=== PATIENT | female | born 1960 | race Caucasian/White ===

== ENCOUNTER 2016-09-02 20:40 | Emergency (ER) | payer SELFPAY ==
[~2016-09-02] VITALS: Ht 162.6 cm; Wt 115.1 kg
[2016-09-02 20:42] VITALS: BP 169/80
== END 2016-09-02 23:36 | disposition left against medical advice (07) ==
LOC: ED 23:25
DX: R06.02 Shortness of breath (principal)
CPT/HCPCS: 93005; 99281

== ENCOUNTER 2016-09-05 04:26 | Emergency (ER) | payer MEDICAID ==
[~2016-09-05] VITALS: Ht 162.6 cm; Wt 114.1 kg
[2016-09-05] MEDS ORDERED: SODIUM CHLORIDE 0.9% 1,000 ML IV ONE (04:54)
[2016-09-05] MEDS ORDERED: KETOROLAC 30 MG/1 ML ONE (04:55)
[2016-09-05] MEDS ORDERED: HYDROmorphone 1 MG/ML, 1ML ONE ×2 (04:55→06:21)
[2016-09-05] MEDS ORDERED: ONDANSETRON 2MG/ML, 2ML ONE (04:55)
[2016-09-05] MEDS ORDERED: KETOROLAC 30 MG/1 ML IVPush ONE (05:00)
[2016-09-05] MEDS ORDERED: ONDANSETRON 2MG/ML, 2ML IVPush ONE (05:00)
[2016-09-05] MEDS ORDERED: SODIUM CHLORIDE 0.9% 1,000ML IVBOLUS ONE (05:00)
[2016-09-05] MEDS: HYDROmorphone 1 MG/ML, 1ML IVPush PRN ×2 (05:35→06:38)
[2016-09-05 05:52] LABS: BLOOD UREA NITROGEN 11 mg/dL (7-18)
[2016-09-05 05:59] LABS: PATH.CAST-FLAG NOT PRESENT; SPERM-FLAG NOT PRESENT; SRC-FLAG NOT PRESENT; XTAL-FLAG NOT PRESENT; YLC-FLAG NOT PRESENT
[2016-09-05 06:42] VITALS: BP 136/77
== END 2016-09-05 06:47 | disposition home or self-care (01) ==
LOC: ED 06:41
DX: N20.1 Calculus of ureter (principal)
CPT/HCPCS: 36415; 74176; 80048; 81001; 82040; 85025; 96361; 96374; 96375; 96376; 99285; J1170; J1885; J2405; J7030

== ENCOUNTER 2016-10-09 21:36 | Emergency (ER) | payer MEDICAID ==
[~2016-10-09] VITALS: Ht 162.6 cm; Wt 112.3 kg
[2016-10-09 22:40] LABS: BLOOD UREA NITROGEN 16 mg/dL (7-18)
[2016-10-09 22:54] LABS: IS PT STATUS REG ER OR PRE ER? YES
[2016-10-09 23:20] VITALS: BP 146/84
== END 2016-10-09 23:22 | disposition home or self-care (01) ==
LOC: ED 22:14
DX: R07.89 Other chest pain (principal); Z87.891 Personal history of nicotine dependence
CPT/HCPCS: 36415; 71020; 80048; 82040; 84484; 85025; 85379; 93005

== ENCOUNTER 2017-04-28 01:52 | Emergency (ER) | payer MEDICAID ==
[~2017-04-28] VITALS: Ht 162.6 cm; Wt 112.4 kg
[2017-04-28] MEDS ORDERED: KETOROLAC 30 MG/1 ML IM ONE (02:30)
[2017-04-28] MEDS ORDERED: METHOCARBAMOL 750 MG TABLET PO ONE (02:30)
[2017-04-28] MEDS ORDERED: METHOCARBAMOL 750 MG TABLET ONE (02:36)
[2017-04-28] MEDS ORDERED: KETOROLAC 30 MG/1 ML ONE (02:36)
[2017-04-28] MEDS ORDERED: DIAZEPAM 5 MG TABLET PO ONE (03:30)
[2017-04-28] MEDS ORDERED: DIAZEPAM 5 MG TABLET ONE (03:31)
[2017-04-28 03:35] LABS: BASOPHILS # (AUTO) 0.01 x10^3/uL (0-0.1); BASOPHILS % (AUTO) 0 % (0-1); EOSINOPHILS # (AUTO) 0.16 x10^3/uL (0-0.4); EOSINOPHILS % (AUTO) 3 % (1-7); LYMPHOCYTES # (AUTO) 1.34 x10^3/uL (1-3.4); LYMPHOCYTES % (AUTO) 22 % (22-44); MD NO; MEAN CORPUSCULAR HEMOGLOBIN 27.1 pg (27.0-34.8); MEAN CORPUSCULAR HGB CONC 32.8 g/dL (32.4-35.8); MEAN CORPUSCULAR VOLUME 82.4 fL (80-100); MEAN PLATELET VOLUME 7.9 fL (7.4-10.4); MONOCYTES % (AUTO) 10 % (2-9); NEUTROPHILS # (AUTO) 3.87 x10^3/uL (1.8-6.8); NEUTROPHILS % (AUTO) 65 % (42-75); PLATELET COUNT 175 x10^3/uL (130-400); RED BLOOD COUNT 5.01 x10^6/uL (3.82-5.3); RED CELL DISTRIBUTION WIDTH 15.8 % (9.6-15.2)
[2017-04-28 03:47] LABS: ALBUMIN 3.4 g/dL (3.4-5.0); ANION GAP 4 mmol/L (5-15); CHLORIDE 107 mmol/L (98-107); CREATININE 0.41 mg/dL (0.55-1.02)
[2017-04-28 03:52] LABS: TROPONIN I < 0.015 ng/mL (0.000-0.045)
[2017-04-28 04:06] VITALS: BP 148/76
== END 2017-04-28 04:31 | disposition home or self-care (01) ==
LOC: ED 02:28
DX: S29.012A Strain of muscle and tendon of back wall of thorax, initial encounter (principal); J09.X2 Influenza due to identified novel influenza A virus with other respiratory manifestations; M54.6 Pain in thoracic spine; R07.89 Other chest pain; X58.XXXA Exposure to other specified factors, initial encounter; Y93.89 Activity, other specified; Y92.89 Other specified places as the place of occurrence of the external cause; Y99.8 Other external cause status
CPT/HCPCS: 36415; 71046; 80048; 82040; 84484; 85025; 93005; 96372; 99285; J1885

== ENCOUNTER 2019-05-19 17:23 | Emergency (ER) | payer MEDICAID ==
[~2019-05-19] VITALS: Ht 162.6 cm; Wt 125.8 kg
--- NOTE | 2019-05-19 18:00 | NUR ---
pt to room
--- NOTE | 2019-05-19 18:05 | NUR ---
TASK RN: THIS IS A 58Y F THAT COMES IN TONIGHT FOR COUGH X3DAYS. PT STS SHE HAS A COLD FOR 1WK BUT HAS RECENTLY DEVELOPED COUGH AND RIGH UPPER QUAD PAIN WHEN SHE COUGHS. PT DENIES FEVER CHILLS, C/V/D. PT DID NOT GET A FLU SHOT THIS YEAR. PT CONNECTED TO MONITORING VSS, NADN. DAUGHTER AT BEDSIDE. CALL LIGHT IN REACH
[2019-05-19 19:12] LABS: BASOPHILS # (AUTO) 0.03 x10^3/uL (0-0.1); BASOPHILS % (AUTO) 0 % (0-1); EOSINOPHILS # (AUTO) 0.15 x10^3/uL (0-0.4); EOSINOPHILS % (AUTO) 2 % (1-7); LYMPHOCYTES # (AUTO) 1.01 x10^3/uL (1-3.4); LYMPHOCYTES % (AUTO) 16 % (22-44); MD NO; MEAN CORPUSCULAR HEMOGLOBIN 28.4 pg (27.0-34.8); MEAN CORPUSCULAR VOLUME 86.1 fL (80-100); MEAN PLATELET VOLUME 8.8 fL (7.4-10.4); MONOCYTES # (AUTO) 0.51 x10^3/uL (0.2-0.8); MONOCYTES % (AUTO) 8 % (2-9); NEUTROPHILS # (AUTO) 4.75 x10^3/uL (1.8-6.8); NEUTROPHILS % (AUTO) 74 % (42-75); PLATELET COUNT 195 x10^3/uL (130-400); RED CELL DISTRIBUTION WIDTH 15.4 % (9.6-15.2)
[2019-05-19 19:14] LABS: ANION GAP 4 mmol/L (5-15); CALCIUM 9.4 mg/dL (8.5-10.1); CHLORIDE 109 mmol/L (98-107); CREATININE 0.68 mg/dL (0.55-1.02)
[2019-05-19 19:15] LABS: ALANINE AMINOTRANSFERASE 26 U/L (12-78); ALBUMIN 3.4 g/dL (3.4-5.0)
[2019-05-19 19:17] LABS: ALKALINE PHOSPHATASE 106 U/L (45-117); BILIRUBIN,TOTAL 0.2 mg/dL (0.2-1.0); TOTAL PROTEIN 7.3 g/dL (6.4-8.2)
[2019-05-19 19:23] VITALS: BP 128/78
--- NOTE | 2019-05-19 20:23 | NUR ---
Patient/Caregiver given discharge instructions and they have confirmed that they understand the instructions. Patient ambulatory with steady gait.
== END 2019-05-19 20:25 | disposition home or self-care (01) ==
LOC: ED 20:00
DX: J20.8 Acute bronchitis due to other specified organisms (principal); F17.200 Nicotine dependence, unspecified, uncomplicated; Z90.49 Acquired absence of other specified parts of digestive tract
CPT/HCPCS: 36415; 71046; 80053; 83690; 85025; 93005; 99284